=== PATIENT | male | born 1990 | race Caucasian/White ===

== ENCOUNTER 2023-12-10 15:11 | Outpatient (CLI) | payer MEDICAID, SELFPAY ==
[2023-12-10 16:03] LABS: PCR FLU A Negative PCR FLU A (Negative); PCR FLU B Negative PCR FLU B (Negative); PCR RSV Negative PCR RSV (Negative); SARS PCR* Negative SARS-CoV-2 (Negative)
== END 2023-12-10 15:12 | disposition home or self-care (01) ==
LOC: LKVREF 15:11
PROVIDERS: Visit Provider Physician Assistant
DX: J02.9 Acute pharyngitis, unspecified (principal)
CPT/HCPCS: 87631

== ENCOUNTER 2025-03-22 21:17 | Emergency (ER) | payer MEDICAID, SELFPAY ==
--- OUTSIDE RECORDS SUMMARY | 2025-03-22 21:18 | XMS_ITS | Clinical Summary ---
Author Organization [facility] Address [address] [place] [address] Care Team Providers Care Lookback Coordinator Name Role Phone Unavailable Primary Care Provider Unavailabl e Source Comments You are receiving this document as you are listed as the primary care provider,follow-up provider, or the patient has been referred to you for consultation.This is in compliance with the Medicare andMedicaid EHR Incentive Program,which states Providers who transition their patient to another setting of careor provider of care or refers their patient to another provider of care shouldprovide summary care record for each transition of care or referral. [facility] Allergies No known active allergies Medications pseudoephedrine (SUDAFED) 30 MG tablet Take 30 mg by mouth every 4 hours as needed for Congestion. 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 Gender Identity Not on file Sexual Orientation Not on file Last Filed Vital Signs Vital Sign Reading Time Taken Comments Blood Pressure 128/67 05/09/2017 2:02 PM JUNIOR PROJECT COORDINATOR Pulse 83 05/09/2017 2:02 PM JUNIOR PROJECT COORDINATOR Temperature - - Respiratory Rate - - Oxygen Saturation - - Inhaled Oxygen Concentration - - Weight 78 kg (172 lb) 05/09/2017 2:02 PM JUNIOR PROJECT COORDINATOR Height 175.3 cm (5' 9) 05/09/2017 2:02 PM JUNIOR PROJECT COORDINATOR Body Mass Index 25.4 05/09/2017 2:02 PM JUNIOR PROJECT COORDINATOR Plan of Treatment Health Maintenance Due Date Last Done Comments Hep C Screening (Preventive Services) 1992 HIV Screening (Preventive Services) 2008 Adult Preventive Visit 01/27/2010 DTaP/Tdap/Td Vaccine (1 - Tdap) 01/27/2011 HepB Vaccine (1) 01/27/2011 HPV Vaccine (1 - 3-dose SCDM series) 01/27/2019 COVID-19 Vaccine (1 - 2024-2 6 season) 2024 Influenza Vaccine (#1) 2024 Zoster/Shingles Vaccine (1 of 2) 01/27/2042 HepA Vaccine Aged Out No longer eligi ble based on patient's age to complete this topic Hib Vaccine Aged Out No longer eligi ble based on patient's age to complete this topic IPV (Polio) Vaccine Aged Out No longe r eligible based on patient's age to complete this topic MCV4 Vaccine Aged Out No longer eligi ble based on patient's age to complete this topic Meningococcal B Vaccine Aged Out No l onger eligible based on patient's age to complete this topic Pneumococcal Vaccine Aged Out No long er eligible based on patient's age to complete this topic
--- OUTSIDE RECORDS SUMMARY | 2025-03-22 21:19 | XMS_ITS | Clinical Summary ---
Author Organization [place] Address [address] [facility] [place] [address] Care Team Providers Care Housecalls Nurse Name Role Phone Rolando Valencia MD Unavailable [phone] Rolando Valencia MD Primary Care Provider [phone] Shayna Abdalla MD Unavailable [phone] Isis Rivera LEATHER SORTER EMBROIDERER HAND Unavaila ble Shayna Abdalla MD Unavailable [phone] Allergies No known active allergies Medications Pseudoephedrine- Ibuprofen 30-200 MG CAPS Take 1-2 tablets by mouth 7 Active ondansetron (ZOFRAN) 4 MG tablet Take by mouth every 8 hours 1 Active acetaminophen (TYLENOL) 500 MG tablet Take by mouth every 4 hours 1 Active omeprazole (PRILOSEC) [address] capsule 2 Active eletriptan (RELPAX) 20 MG tabletIndication s:Intractable chronic migraine without aura and without status migrainosus Take 1-2 tablets (20-40 mg) by mouth at onset of headache for migraine (may repeat 20-40 mg in 2 hours as needed. Max 80 mg in 24 hours) 18 tablet 3 3 Active Atogepant (QULIPTA) 60 MG TABSIndications: Episodic migraine Take 60 mg by mouth daily 30 tablet 11 3 Active Active Problems Problem Noted Date Diagnosed Date Pyloric stenosis 01/14/2020 Overview (01/14/2020): per patient Chronic headache 12/18/2019 Nausea and vomiting 12/18/2019 Social History Tobacco Use Types Packs/Day Years Used Date Smoking Tobacco: Former Cigarettes Smokeless Tobacco: Never Tobacco Cessation:Counseling Given: No Comments:fomer cigar smoker Alcohol Use Standard Drinks/Week Comments Not Currently 0 (1 standard drink = 0.6 oz pur e alcohol) PHQ-2 Answer Date Recorded PHQ-2 Score 0 04/16/2022 Adolescent Education Answer Date Record ed Getting School Help Needed Not on file 01/04 Sex and Gender Information Value Date Recorded Sex Assigned at Not on file Legal Sex Male 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 MOULDER'S ASSISTANT Gender Identity Not on file Sexual Orientation Not on file Last Filed Vital Signs Vital Sign Reading Time Taken Comments Blood Pressure 133/76 06/15/2019 3:11 PM METAL MOULDER'S ASSISTANT Pulse 90 06/15/2019 3:11 PM METAL MOULDER'S ASSISTANT Temperature 36.8 C (98.2 F) 06/15/2019 3:11 PM METAL MOULDER'S ASSISTANT Respiratory Rate - - Oxygen Saturation - - Inhaled Oxygen Concentration - - Weight 86.2 kg (190 lb) 08/09/2023 10:03 AM CDT Height 175.3 cm (5' 9) 08/09/2023 10:03 AM CDT Body Mass Index 28.06 08/09/2023 10:03 AM CDT Plan of Treatment Health Maintenance Due Date Last Done Comments ADVANCE CARE PLANNING 1992 ANNUAL REVIEW OF HM ORDERS 1992 AARON ASSESSMENT 1992 PHQ-9 1992 YEARLY PREVENTIVE VISIT 01/27/1995 HIV SCREENING 01/27/2007 HEPATITIS C SCREENING 01/27/2010 HEPATITIS B VACCINE (1 of 3 - 19+ 3-dose series) 01/27/2011 COVID-19 VACCINE (1 - 2024-2 6 season) 2024 INFLUENZA VACCINE (#1) 2024 , 03/06/2019, 04/25/2017 DTAP/TDAP/TD VACCINE (3 - Td or Tdap) 11/23/2032 11/23/2022, 07/21/2012 ZOSTER VACCINE (1 of 2) 01/27/2042 HPV VACCINE (No Doses Required) Completed MENINGITIS VACCINE Aged Out No longer eligible based on patient's age to complete this topic PNEUMOCOCCAL VACCINE: PEDIATRICS (0 to 5 YEARS) AND AT-RISK PATIENTS (6 to 49 YEARS) Aged Out No longer eligible b ased on patient's age to complete this topic Insurance [facility] Care Teams Housecalls Nurse Relationship Specialty Start Date End Date Rolando Valencia MD [facility] [address] [place] [address] PCP - General Family Practice 02/12/19 Rolando Valencia MD [facility] [address] [place] [address] Referring Physician Family Practice 05/03/17 Shayna Abdalla MD [address] [place] [id number] Otolaryngology 07/06/19 Isis Rivera APRN EMBROIDERER HAND [address] [place], [place] [id number], [place] [address] Nurse Practitioner Nurse Practitioner 07/06/19 Shayna Abdalla MD [address] [place] [id number] Otolaryngology 06/07/23
--- OUTSIDE RECORDS SUMMARY | 2025-03-22 21:19 | XMS_ITS | Clinical Summary ---
Author Organization [facility] Address [address] [place] [id number] Care Team Providers Care Electronics Engineering Professor Name Role Phone Rolando Valencia MD Unavailable [phone] [facility] MD Primary Care Provider [phone] Allergies No known active allergies Medications acetaminophen (TYLENOL EXTRA STRENGTH) 500 mg oral tablet Take 2 tablets (1,000 mg) by mouth every 6 (six) hours as needed for Fever or Pain. 100 tablet 03/14/2017 Active oxyCODONE, immediate release, (ROXICODONE) 10 mg oral tablet Take 1 tablet (10 mg) by mouth every 4 (four) hours as needed (pain). 10 tablet 12/22/2019 Active ondansetron (ZOFRAN) 4 mg oral ODT Dissolve 1-2 tablets (4-8 mg) in mouth every 8 (eight) hours as needed. 20 tablet 11/09/2020 Active hydrOXYzine HCl (ATARAX) 25 mg oral tablet Take 1 tablet (25 mg) by mouth every 6 (six) hours as needed for sleep (anxiety). May take 50mg for sleep 15 tablet 02/05/2021 Active omeprazole (PRILOSEC) 40 mg oral delayed release capsule 03/02/2022 Act daryn trimethoprim-po lymyxin b (POLYTRIM) 10,000 unit- 1 mg/mL Opht ophthalmic (EYE) solution Instill 1 drop into the RIGHT eye every 4 hours while awake. 10 mL 11/23/2022 Active Active Problems Problem Noted Date Diagnosed Date Chronic abdominal pain 01/08/2020 Abdominal pain, generalized 12/18/2019 Nausea and vomiting 12/18/2019 Pyloric stenosis Overview (12/18/2019): per patient Chronic headache Immunizations Immunization Administration Dates Next Due Tdap 11/23/2022 Family History Relation Status Comments Mother Alive Social History Tobacco Use Types Packs/Day Years Used Date Smoking Tobacco: Never Smokeless Tobacco: Never Alcohol Use Standard Drinks/Week Comments No 0 (1 standard drink = 0.6 oz pur e alcohol) Sex and Gender Information Value Date Recorded Sex Assigned at Not on file Legal Sex Male 6:16 AM CDT Gender Identity Not on file Sexual Orientation Not on file Last Filed Vital Signs Vital Sign Reading Time Taken Comments Blood Pressure 139/88 11/23/2022 8:32 PM CDT Pulse 88 11/23/2022 8:32 PM CDT Temperature 37.3 C (99.1 F) 11/23/2022 8:32 PM CDT Respiratory Rate 16 11/23/2022 8:32 PM CDT Oxygen Saturation 97% 11/23/2022 8:32 PM CDT Inhaled Oxygen Concentration - - Weight 77.2 kg (170 lb 3.1 oz) 01/08/2020 8:31 P M CDT Height 177.8 cm (5' 10) 11/23/2022 8:32 PM CDT Body Mass Index 25.88 01/08/2020 8:31 PM CDT Plan of Treatment Health Maintenance Due Date Last Done Comments Hepatitis C Screening 1992 Anxiety Screening (AARON-2) 01/27/1993 Depression Assessment (PHQ-2) 01/27/1993 HPV Vaccine (1 - 3-dose SCDM series) 01/27/2019 COVID-19 Vaccine ( - 2024-2 6 season) 2024 Influenza Vaccine (#1) 2024 , 03/06/2019, 04/25/2017 Adult Tetanus Booster 11/23/2032 11/23/2022 , 07/21/2012 RSV Vaccines (1 - 1-dose 75+ series) 01/27/2067 Meningococcal B Vaccine Aged Out No l onger eligible based on patient's age to complete this topic Pneumococcal Vaccine Aged Out No long er eligible based on patient's age to complete this topic Insurance [facility] Subscriber Plan / Payer (Ef fective 2022-Present) Name:Leonard Padilla Relation to Subscriber:Self Name:Leonard Padilla Payer ID:[id number] ([facility]) Type:PMAP Address: [address] [address] Advance Directives For more information, please contact: [phone] * Full Code (Latest Code Status on File) Date Activated Date Inactivated Comments 01/08/2020 9:27 PM 01/13/2020 4:00 AM Question Answer Comments How was code status determined? Patient * Full Code Date Activated Date Inactivated Comments 12/18/2019 10:10 AM 12/22/2019 11:36 PM Question Answer Comments How was code status determined? Patient Care Teams Electronics Engineering Professor Relationship Specialty Start Date End Date [facility] [address] [place] [address] PCP - Primary Care Clinic 01/18/21 Rolando Valencia MD [address] [place] [address] PCP - General Family Medicine 01/18/21 Rolando Valencia MD [address] [place] [address] Family Medicine 03/14/17 [facility] [address] [place] [address] 03/14/17
[2025-03-22 21:39] VITALS: BP 134/83; PULSE 100; RESP 20; TEMP 39; O2SAT 96; BMI 26.6
[2025-03-22 22:34] LABS: PCR FLU A POSITIVE PCR FLU A (Negative); PCR FLU B Negative PCR FLU B (Negative); PCR RSV Negative PCR RSV (Negative); SARS PCR* Negative SARS-CoV-2 (Negative)
[2025-03-22 23:17] VITALS: TEMP 39.9
--- NOTE | 2025-03-22 23:36 | ED.FEVER ---
HPI - Fever General Date Seen: 03/22/25 Chief Complaint: Cough Stated Complaint: fever Time Seen by Provider: 03/22/25 23:09 Source: patient, family, RN notes reviewed and old records reviewed Mode of arrival: ambulatory Limitations: no limitations History of Present Illness HPI Narrative: Patient is a 35-year-old gentleman who presents here with a fever, this started today actually a few hours ago, he also has a cough associated with this he has 2 contacts that are positive for influenza a, did not receive in the immunization, no history of any cardiac or pulmonary problems, but he does his have a history of chronic sinusitis and eosinohilic esophagitis. He has had no nausea no vomiting no diarrhea no abdominal pain, just aches all over and feels like he tells me he is going to . No rashes no sore throat significant he has not taken any medications for this. MD elicited complaint: fever and malaise Onset (ago): hour(s) Context: sick contacts and other(s) with similar symptoms Treatments prior to arrival fever: none Related Data Home Medications ?Medication ?Instructions ?Recorded ?Confirmed acetaminophen 500 mg tablet mg PO 12/10/23 12/10/23 hydroxyzine pamoate 25 mg capsule mg PO 12/10/23 12/10/23 omeprazole 40 mg capsule,delayed mg PO 12/10/23 12/10/23 release ondansetron 4 mg disintegrating mg PO 12/10/23 12/10/23 tablet oxycodone 5 mg tablet mg PO 12/10/23 12/10/23 Allergies Allergy/AdvReac Type Severity Reaction Status Date / Time No Known Drug Allergies Allergy Verified 12/10/23 15:07 Review of Systems Status of ROS Reports: 10 or more systems reviewed and unremarkable except as noted in History and below Exam Narrative Exam Narrative: On examination he is in no apparent distress and stabilization room 2, he does have a fever, nontoxic pupils equal round reactive to light there is no scleral icterus redness TMs bilaterally are normal oropharynx normal there is no adenopathy anterior posterior chains his chest is good air entry bilaterally no wheezing crackles noted his heart sounds are normal no clicks murmurs or gallops his abdomen is soft there is no guarding organomegaly moves all extremities independently well. Skin reveals no petechiae rashes Const Vital Signs, click to edit/add: Vital Signs - 24 hr 03/22/25 21:39 Temperature 102.2 F H Pulse Rate [Pulse Oximeter] 100 Respiratory Rate 20 Blood Pressure [Right Upper Arm] 134/83 Pulse Oximetry 96 Oxygen Delivery Method Room Air Documenting provider has reviewed patient's vital signs: yes Course Course ED Course: I think it is reasonable to use Tylenol for his fever, he he does not really have any immunosuppressive conditions, that would factor in use of Tamiflu, I went over this with him, and he declined any intervention Vital Signs Vital signs: Initial Vital Signs Temperature 102.2 F H 03/22/25 21:39 Temperature Source Temporal Artery Scan 03/22/25 21:39 Pulse Rate 100 03/22/25 21:39 Respiratory Rate 20 03/22/25 21:39 Blood Pressure 134/83 03/22/25 21:39 Blood Pressure Mean 100 03/22/25 21:39 Blood Pressure Position Sitting 03/22/25 21:39 Pulse Oximetry 96 03/22/25 21:39 Oxygen Delivery Method Room Air 03/22/25 21:39 Vital Signs Temperature 102.2 F H 03/22/25 21:39 Pulse Rate 100 03/22/25 21:39 Respiratory Rate 20 03/22/25 21:39 Blood Pressure 134/83 03/22/25 21:39 Pulse Oximetry 96 03/22/25 21:39 Oxygen Delivery Method Room Air 03/22/25 21:39 Temperature 102.2 F H 03/22/25 21:39 Pulse Rate 100 03/22/25 21:39 Respiratory Rate 20 03/22/25 21:39 Blood Pressure 134/83 03/22/25 21:39 Pulse Oximetry 96 03/22/25 21:39 Oxygen Delivery Method Room Air 03/22/25 21:39 Medications Administered Medications: Discontinued Medications Generic Name Dose Route Start Last Admin Trade Name Freq PRN Reason Stop Dose Admin Acetaminophen 1,000 mg 03/22/25 23:26 03/22/25 23:37 Acetaminophen 500 Mg Tablet PO 03/22/25 23:27 Not Given ONCE ONE Acetaminophen 1,000 mg 03/22/25 23:29 03/22/25 23:37 Acetaminophen 500 Mg Tablet PO 03/22/25 23:30 Not Given ONCE ONE MDM - Fever MDM Narrative Medical decision making narrative: Life-threatening differential diagnosis is include meningitis, encephalitis, pneumonia, intra-abdominal infection, bacteremia, other differential diagnosis include but are not limited to viral upper respiratory tract infection, strep, urinary tract infection, skin infection, osteomyelitis, influenza, fungal infections, diskitis, epidural abscess, or fever of unknown origin. Medical Records Attestation: I reviewed the patient's medical records. Lab Data Attestation: I reviewed the patient's lab results. Lab results narrative: Positive influenza a Labs: Lab Results 03/22/25 Range/Units 21:44 SARS-CoV-2 (PCR) Negative SARS-CoV-2 (Negative) Influenza Type A (PCR) POSITIVE PCR FLU A A (Negative) Influenza Type B (PCR) Negative PCR FLU B (Negative) RSV (PCR) Negative PCR RSV (Negative) Discharge Plan Discharge Clinical Impression: Influenza A Patient Disposition: Home w/ Parent or Adult Condition: Stable Instructions: Influenza (DC), Droplet Precautions (ED) Additional Instructions: Home, rest, Tylenol 1 g p.o. t.i.d.. Recommend return if increasing shortness of breath, chest pain or signs of a secondary infection such as pneumonia which can rarely occur. Activity Level: Light activity Discharge Diet: Regular Prescriptions: No Action omeprazole 40 mg capsule,delayed release(DR/EC) PO acetaminophen 500 mg tablet PO hydroxyzine pamoate 25 mg capsule PO ondansetron 4 mg tablet,disintegrating PO oxycodone 5 mg tablet PO Follow Up/Referrals: Provider,Not a Local [Primary Care Provider, Family Practice] Stand Alone Forms: [employer] Info Instructions
== END 2025-03-23 00:02 | disposition home or self-care (01) ==
LOC: ED 23:37
PROVIDERS: Emergency Provider Family Medicine
DX: J10.1 Influenza due to other identified influenza virus with other respiratory manifestations (principal)
CPT/HCPCS: 87631; 99283; 99284